=== PATIENT | female | born 1950 | race Caucasian/White ===

== ENCOUNTER 2020-03-16 11:13 | Day surgery (SDC) | payer MEDICARE, OTHER ==
[2020-03-16] VITALS (11 sets, daily range): BP systolic 111–149; BP diastolic 69–84
[~2020-03-16] VITALS: Ht 167.6 cm; Wt 80.1 kg
[2020-03-16] MEDS ORDERED: LORazepam 0.5 MG tablet PO PRN (11:40)
[2020-03-16] MEDS ORDERED: nitroGLYCERIN 0.4mg SUBLingual tab SL PRN (11:40)
[2020-03-16] MEDS ORDERED: dextrose ORAL solution 15 GM/59 ML bottle PO PRN ×2 (11:40)
[2020-03-16] MEDS ORDERED: dextrose 50%-water 50ml dispensing syringe IV PRN ×2 (11:40)
[2020-03-16] MEDS ORDERED: glucagon, human recombinant 1mg kit SUBCUT PRN (11:40)
[2020-03-16] MEDS ORDERED: methylPREDNISolone sod succ 125mg/2ml vial IV ONE (11:40)
[2020-03-16] MEDS ORDERED: normal saline 1,000 ML IV SCH (11:40)
[2020-03-16] MEDS ORDERED: diphenhydrAMINE 25mg capsule PO PRN (11:40)
[2020-03-16] MEDS ORDERED: insulin Lispro (HumaLOG) vial - multi-dose SQ SCH (11:40)
[2020-03-16] MEDS ORDERED: TRAZ-256 PO (11:58)
[2020-03-16] MEDS ORDERED: SIMV-42 PO (11:58)
[2020-03-16] MEDS ORDERED: CALC625T31 (11:58)
[2020-03-16] MEDS ORDERED: LIRA0.6P2 SUBCUT (11:58)
[2020-03-16] MEDS ORDERED: LISI-600 PO (11:58)
[2020-03-16] MEDS ORDERED: DULO60CA45 PO (11:58)
[2020-03-16] MEDS ORDERED: DIGO125T PO (11:58)
[2020-03-16] MEDS ORDERED: PANT-47 PO (11:58)
[2020-03-16] MEDS ORDERED: INSU100V9 SQ (11:58)
[2020-03-16] MEDS ORDERED: VERA240T PO (11:58)
[2020-03-16] MEDS ORDERED: LEVO125T PO (11:58)
[2020-03-16] MEDS ORDERED: AMIL5TAB8 PO (11:58)
[2020-03-16 12:47] LABS: BASOPHILS # (AUTO) 0.1 X10'3 (0-0.2); BASOPHILS % (AUTO) 0.7 % (0-1); EOSINOPHILS # (AUTO) 0.1 X10'3 (0-0.9); EOSINOPHILS % (AUTO) 1.3 % (0-6); HEMATOCRIT 42.3 % (35.0-45.0); HEMOGLOBIN 14.2 g/dl (12.0-16.0); LYMPHOCYTES # (AUTO) 1.4 X10'3 (1.1-4.8); LYMPHOCYTES % (AUTO) 18.6 % (21-51); MEAN CORPUSCULAR HEMOGLOBIN 31.8 PG (27.0-31.0); MEAN CORPUSCULAR HGB CONC 33.5 g/dL (33.0-36.5); MEAN CORPUSCULAR VOLUME 94.9 FL (78-98); MEAN PLATELET VOLUME 7.4 FL (7.4-10.4); MONOCYTES # (AUTO) 0.4 X10'3 (0-0.9); MONOCYTES % (AUTO) 5.4 % (2-12); NEUTROPHILS # (AUTO) 5.5 X10'3 (1.8-7.7); PLATELET COUNT 219 X10'3 (140-440); RED BLOOD COUNT 4.46 X10'6 (4.20-5.60); RED CELL DISTRIBUTION WIDTH 13.9 % (11.5-14.5); WHITE BLOOD COUNT 7.5 X10'3 (4.5-11.0)
[2020-03-16 13:01] LABS: PARTIAL THROMBOPLASTIN TIME 26 SECONDS (22-32)
[2020-03-16 13:07] LABS: ALBUMIN 3.8 G/DL (3.4-5.0); ANION GAP 8 (8-16); BLOOD UREA NITROGEN 13 MG/DL (7-18); BUN/CREATININE RATIO 12.6 (6.6-38.0); CALCIUM 8.6 MG/DL (8.5-10.1); CHLORIDE 103 MMOL/L (99-107); CREATININE 1.03 MG/DL (0.40-0.90); GLUCOSE 122 MG/DL (70-104); POTASSIUM 4.3 MMOL/L (3.5-5.1); SODIUM 139 MMOL/L (135-145); TOTAL CARBON DIOXIDE 27.6 MMOL/L (24-32); eGFR 53 ML/MIN
[2020-03-16] MEDS ORDERED: fentaNYL/PF 50MCG/1 ML 2ML syringe ONE (13:42)
[2020-03-16] MEDS ORDERED: iohexol 350MG/ML 100ml bottle IV ONE (13:42)
[2020-03-16] MEDS ORDERED: iohexol 350 MG/ML 50ML vial IV ONE (13:42)
[2020-03-16] MEDS ORDERED: midazolam 2 mg/2 ml injection ONE ×2 (13:42→14:11)
[2020-03-16] MEDS ORDERED: LIDOcaine 1% (10mg/ml)w/preservative injection 20ml MDV ONE (13:42)
[2020-03-16] MEDS ORDERED: OXAZEpam 15mg capsule PO PRN (14:55)
[2020-03-16] MEDS ORDERED: HYDROcodone/acetaminophen 5mg/325mg tablet PO PRN (14:55)
[2020-03-16] MEDS ORDERED: ondansetron/PF 4mg/2ml inj IV PRN (14:55)
[2020-03-16] MEDS ORDERED: HYDROcodone/acetaminophen 10/325mg tab PO PRN (14:55)
[2020-03-16 19:29] LABS: HEMOGLOBIN A1C 5.9 % (4.5-6.2)
[2020-03-16] MEDS ORDERED: insulin glargine (Lantus) pen - multi-dose SQ SCH (21:00)
== END 2020-03-16 20:25 | disposition home or self-care (01) ==
LOC: SSTAY O 11:13
PROVIDERS: ATTEND Internal Medicine Cardiovascular Disease
DX: R94.39 Abnormal result of other cardiovascular function study (principal); I25.10 Atherosclerotic heart disease of native coronary artery without angina pectoris; E11.9 Type 2 diabetes mellitus without complications; I48.0 Paroxysmal atrial fibrillation; I10 Essential (primary) hypertension; F32.9 Major depressive disorder, single episode, unspecified; I34.1 Nonrheumatic mitral (valve) prolapse; E78.5 Hyperlipidemia, unspecified; J44.9 Chronic obstructive pulmonary disease, unspecified; Z87.891 Personal history of nicotine dependence; Z79.899 Other long term (current) drug therapy
CPT/HCPCS: 36415; 71046; 80048; 82948; 83036; 85025; 85610; 85730; 93005; 93458; 99152; 99153; C1760; C1769; J1644; J2001; J2250; J2930; J3010; J7030; Q0163; Q9967; A4620; J1815